=== PATIENT | female | born 1995 | race Caucasian/White ===

== ENCOUNTER → 2017-09-18 10:35 | Outpatient (CLI) | payer MEDICAID, SELFPAY ==
[2017-09-18 12:34] LABS: Absolute Lymphocyte Count 1.45 X10^3/ul (0.83-4.51); Absolute Neutrophil Count 7.2 X10^3/uL (2.0-7.7); Basophil# 0.04 X10^3/uL; Basophil% 0.4 % (0-1); Eosinophil# 0.28 X10^3/uL; Eosinophils% 2.8 % (0-5); Hematocrit 34.3 % (37-47); Hemoglobin 11.3 g/dl (12.0-15.0); Lymphocyte # 1.45 X10^3/ul (4.0); Lymphocyte % 14.6 % (19-41); Mean Corp Hgb Conc 32.9 g/gl (32-36); Mean Corpuscular Volume 87.9 fL (81-99); Mean Platelet Vol. 12.2 fl (6.2-12.0); Monocyte# 0.93 X10^3/uL; Monocyte% 9.4 % (0-10); Neutrophil # 7.18 X10^3/uL (2.7-7.7); Neutrophil % 72.3 % (47-70); Platelet Count 196 K/mm3 (150-450); RBC Distribution Width CV 13.2 % (11.6-14.6); RBC Distribution Width SD 40.6 fl (35.1-43.9); White Blood Count 9.9 K/mm3 (4.4-11.0)
[2017-09-18 12:38] LABS: Glucose Challenge Gest 1H 50g 85 mg/dL (70-140)
[2017-09-18 12:40] LABS: POSITIVE COUNT NO; POSITIVE DIFFERENTIAL NO; POSITIVE MORPHOLOGY NO
== END ==
PROVIDERS: Visit Provider Obstetrics & Gynecology
DX: Z34.83 Encounter for supervision of other normal pregnancy, third trimester (principal)
CPT/HCPCS: 36415; 82950; 85025; 86850; 86900

== ENCOUNTER 2017-10-11 21:00 | Outpatient (CLI) | payer MEDICAID, SELFPAY ==
[2017-10-11 21:37] VITALS: BMI 29.8
[2017-10-11 21:53] LABS: Mucous, Urine 0 SEEN /hpf (<or=2+); Red Blood Cells-Urine 0 SEEN /hpf (0-5)
[2017-10-11 22:00] LABS: Color, Urine Yellow (Yellow); Glucose, Dipstick Normal (Normal); Ketone-Dipstick Negative (Negative); Leukocyte Esterase-Dipstick 500 /ul (Negative); Nitrite-Dipstick Negative (Negative); Occult Blood-Urine Negative /ul (Negative); Protein-Dipstick Negative (Negative); Specific Gravity, Urine 1.015 (1.002-1.030); Urine Bilirubin Dipstick Negative (Negative); Urine Clarity Clear (Clear); Urine Urobilinogen 1 mg/dl (Normal)
[2017-10-11 22:08] LABS: Bacteria RARE /hpf (None Seen); Squamous Epithelial Cells - UA 0-5 SEEN /hpf (5-10); White Blood Cells 5-10 SEEN /hpf (0-5)
[2017-10-11 22:34] VITALS: RESP 18
--- NOTE | 2017-10-13 06:34 | OB.TRI.NOTE ---
- Problem List (1) Threatened labor Status: Acute History of Present Illness Date of Service: 10/11/17 Reason For Visit: PELVIC PRESSURE Date of Service: 10/11/17 History of Present Illness: co pelvic pressure and ctx Allergies oxycodone Allergy (Verified 10/11/17 21:36) Swelling Penicillins Allergy (Verified 10/11/17 21:36) Swelling - Pertinent Past Medical History Surgical History: Past Surgical History (Last Reviewed 10/05/17 @ 10:49 by Otilia Schreiber) delivery delivered History of ankle surgery Physical Exam Vitals: Vital Signs Resp 18 10/11/17 22:34 NST - FHR Rate Baby A Baseline: 140 Variability:: Moderate Accelerations:: 15 x 15 Decelerations:: None NST Reactive:: Yes FHR Category:: Category I Uterine Activity:: irregular Impression/Plan threatened labor reactive NST category I tracing. no cervical change dc home labor precautions
== END 2017-10-11 22:34 | disposition home or self-care (01) ==
LOC: WPOUT 21:14 → WP 21:14
PROVIDERS: Visit Provider Obstetrics & Gynecology
DX: O60.00 Preterm labor without delivery, unspecified trimester (principal); Z3A.00 Weeks of gestation of pregnancy not specified
CPT/HCPCS: 59025; 59050; 81001; 87086; 99218; G0378

== ENCOUNTER → 2017-10-15 19:22 | Outpatient (CLI) | payer MEDICAID, SELFPAY | PROVIDERS: Visit Provider Obstetrics & Gynecology | DX: R30.0 Dysuria (principal) | CPT/HCPCS: 87086 ==

== ENCOUNTER → 2017-11-05 15:49 | Outpatient (CLI) | payer MEDICAID, SELFPAY ==
--- NOTE | 2017-11-05 15:53 | US_ITS ---
STUDY: SECOND AND THIRD TRIMESTER OBSTETRICAL ULTRASOUND - LIMITED REASON FOR EXAM: Female, 22 years old. Bleeding. LMP: March 13, 2017 PRIOR ULTRASOUND: None. TECHNIQUE: Transabdominal ultrasound evaluation was performed. FINDINGS: There is a single intrauterine fetus. The fetus is in a cephalic presentation. There is demonstrated cardiac activity with a heart rate of 158 bpm. There is a normal amniotic fluid volume. The largest amniotic fluid pocket measures 3.76 cm. The amniotic fluid index (BRITTON) is 13.3 cm. The placenta is fundal There are Grade 1 placental changes. The cervix measures 13.56 cm in length. BIOMETRY: BPD: 9.12 cm: 37 weeks, 0 days HC: 32.71 cm: 37 weeks, 1 days AC: 30.68 cm: 34 weeks, 5 days FL: 11.17 cm: 36 weeks, 5 days Age by LMP: 33 weeks, 6 days. RAMÍREZ by LMP: 12/18/2017. age by current US: 35 weeks, 6 days. RAMÍREZ by current US: 12/04/2017. Estimated weight: 2584 grams, +/- 377 grams, 79 percentile. US/OB Limited With Biometrics IMPRESSION: Single intrauterine with an estimated gestational age by ultrasound of 35 weeks and 6 days with an RAMÍREZ of December 04, 2017. Electronically Signed: Maxine Garcia MD at 19:28 EDT Tel , Service support ,
== END ==
PROVIDERS: Referring Provider Obstetrics & Gynecology; Visit Provider Obstetrics & Gynecology
DX: O34.219 Maternal care for unspecified type scar from previous cesarean delivery (principal); O47.00 False labor before 37 completed weeks of gestation, unspecified trimester; Z3A.00 Weeks of gestation of pregnancy not specified
CPT/HCPCS: 76816

== ENCOUNTER → 2017-11-21 13:43 | Outpatient (CLI) | payer MEDICAID, SELFPAY ==
[2017-11-21 16:19] LABS: Group B Strep DNA By PCR Negative (Negative); Internal Control PASS; Probe Check PASS; Specimen Processing Control PASS
[2017-11-21 16:45] LABS: Chlamydia Trachomatis by PCR Negative (Negative); Neisserai gonorrhoeae by PCR Negative (Negative); Probe Check PASS; Sample Adequacy Control PASS; Specimen Processing Control PASS
== END ==
PROVIDERS: Referring Provider Nurse Practitioner Women's Health; Visit Provider Nurse Practitioner Women's Health
DX: Z34.90 Encounter for supervision of normal pregnancy, unspecified, unspecified trimester (principal)
CPT/HCPCS: 87081; 87491; 87591; 87653

== ENCOUNTER 2017-12-05 09:55 | Outpatient (CLI) | payer MEDICAID, SELFPAY ==
[2017-12-05 10:44] LABS: ROM Internal Control Test YES-OK TO RESULT pt. (Internal QC); ROM Patient Test Negative (Negative)
--- NOTE | 2017-12-17 21:10 | OB.TRI.NOTE ---
- Problem List (1) False labor Status: Acute History of Present Illness Date of Service: 12/05/17 Was patient seen by the physician?: No Reason For Visit: R/O SROM History of Present Illness: co questionable lof and irregular ctx Allergies oxycodone Allergy (Verified 12/11/17 14:49) Swelling Penicillins Allergy (Verified 12/11/17 14:49) Swelling - Pertinent Past Medical History Surgical History: Past Surgical History (Last Reviewed 12/11/17 @ 14:49 by Otilia Schreiber) delivery delivered History of ankle surgery Laboratory Studies: Laboratory Tests 12/05/17 Range/Units 10:18 Vag Amniotic Fld Detect Negative (Negative) NST - FHR Rate Baby A Baseline: 130 Variability:: Moderate Accelerations:: 15 x 15 Decelerations:: None NST Reactive:: Yes FHR Category:: Category I Uterine Activity:: no regular Impression/Plan false labor no ROM, reactive nst reassuring FHTs dc home labor precautions
== END 2017-12-05 11:00 | disposition home or self-care (01) ==
LOC: WPOUT 09:59 → WP 10:00
PROVIDERS: Referring Provider Obstetrics & Gynecology; Visit Provider Obstetrics & Gynecology
DX: O47.9 False labor, unspecified (principal); Z3A.00 Weeks of gestation of pregnancy not specified
CPT/HCPCS: 59025; 59050; 84112; 99218; G0378

== ENCOUNTER 2017-12-18 05:07 | Inpatient (IN) | payer MEDICAID, SELFPAY ==
[2017-12-18] MEDS: Lactated Ringers 1,000 ML 50 ML IV ×2 (05:45→06:45)
--- NOTE | 2017-12-18 05:45 | HP.PCM_ITS ---
- Problem List (1) IUD contraception Status: Acute Comment: plan 6 week pp (2) Status: Acute Qualifiers: Comment: Seq screen negative (3) Family history of congenital anomaly of cardiovascular system Status: Acute Comment: FOB and FOB's mother had surgical correction of a hole in their hearts. (4) Rh negative status during Status: Acute Qualifiers: Comment: rhogam 28 weeks and PRN (5) History of spina bifida Status: Acute Comment: patient born with spina bifida that was corrected. she has had an epidural with no issues. negative sequential screen (6) Normal in multigravida in third trimester Status: Acute Comment: PRR RAMÍREZ 12/18/17 girl PC Denny Jim boyfriend Chuck (7) Previous delivery affecting Status: Acute Comment: planning TOLAC, up to date information given. 90% chance of success. consent signed (8) Active labor at term Status: Acute History Date of Admission: 09/30/14 Final RAMÍREZ: 12/18/17 Gestational age: 40 Weeks and 0 Days History of this : This is a 22 year-old, at 40 weeks gestational age presents IAL 6 cm dilated. she desires a TOLAC. she has a history of being rh negative but otherwise has had an uncomplicated Surgical History: Surgical History (Last Reviewed 12/11/17 @ 14:49 by Otilia Schreiber) delivery delivered O82 History of ankle surgery Z98.890 Allergies oxycodone Allergy (Verified 12/11/17 14:49) Swelling Penicillins Allergy (Verified 12/11/17 14:49) Swelling Home Medications: Home Medications vitamin,calcium,oaetebkx-yggd-wfbym acid tablet 1 tab PO QDAY 09/18/17 Smoking Status: Never smoker Alcohol: None Number of Fetus(es): 1 Heart Tracin moderate variability reactive no decels. cat I tracing TOCO Analysis: q2-3 History Past Pregnancies: Past Pregnanciesgancy History 3 Elective abortions Hx Para 2 Spontaneous abortions Hx # Term Pregnancies Ectopic pregnancies Hx # Pregnancies Multiple births # of living children Past Pregnancies Del. Date Name GA/Weeks Outcome Route Bth Weight Infant Gen Labor Lgth Anesthesia Del Locatn Provider FOB Unknown 2014 Diandra 40 live - full term 8lbs 7oz Female SM Unknown 2016 Denny 39 live - full term 8lbs 12oz Male SM Delivery Date: On 09/18/17 @ 09:18 Emily Boothe breech Labs: Mom's Problem List Problem Status Onset Code Active labor at term Acute Social History Alleged father chuck Vazquez Smoking No Smoking Status Never smoker Expected Infant Delivery Method: Describe any other labor & delivery plans:: OB Visit. RAMRÍEZ Calculator. Estimated Delivery Date 12/18/17. Based on LMP (certain) 03/13/17. Current WG 39w 0d. Number 1. Expected Delivery Route/Plan. - planned and discussed, handout given. Specific Issue/Plans. flu vaccine: given. tdap vaccine: given. rhogam: given. LARC form signed: alfonso. labor support person: Chuck. pain management: epidural. cut cord/dad catch: yes. : yes. PP control planned: iud pp. discussed possible routes of delivery and associated risks: yes, plan TOLAC. consent signed. special requests: Review of Systems Constitutional: Denies: Fever, Malaise Eyes: Denies: Blurred vision, Vision Change HEENT: Denies: Head Aches, Visual Changes Cardiovascular: Denies: Chest Pain, Palpitations Respiratory: Denies: Cough, Shortness of Breath, Wheezing Gastrointestinal: Denies: Abdominal Pain, Diarrhea, Nausea, Vomiting Genitourinary: Denies: Dysuria, Hematuria Musculoskeletal: Denies: Joint Pain, Muscle pain Skin: Denies: Lesions, Rash Neurological: Denies: Blurred vision, Focal weakness, Headaches Psychiatric: Denies: Anxiety, Depression Endocrine: Denies: Heat/ Cold Intolerance Hematologic/ Lymphatic: Denies: Easy Bruising, Easy Bleeding Physical Exam General: Alert, Cooperative, No apparent distress HEENT: Atraumatic, Normocephalic. Negative for: Thyromegaly, Lymphadenopathy Cardiovascular: Regular rate Lungs: Normal air movement Abdomen: Soft, Non Tender, Gravid Neurological: Deep Tendon Reflexes 2+/4 and Symmetrical, Neuro grossly intact. Negative for: Clonus PRESCHOOL ASSISTANT DIRECTOR: Normal external genitalia. Negative for: Vulvar lesions Estimated gestational size: Appropriate for gestational size Presentation: Cephalic Cervix Dilation (cm): 6 Assessment/Plan All Active Problems (Last Reviewed 12/11/17 @ 14:49 by Otilia Schreiber) False labor (Acute) Active labor at term (Acute) IUD contraception (Acute) (Acute) Family history of congenital anomaly of cardiovascular system (Acute) Rh negative status during (Acute) History of spina bifida (Acute) Normal in multigravida in third trimester (Acute) Previous delivery affecting (Acute) Threatened labor (Resolved) This is a 22 year-old, at 40 weeks gestational age presents IAL desires TOLAC Patient presents IAL, plan expectant management for , pitocin/AROM PRN if needed. Pain management: plans epidural. GBS negative Management of any complications: TOLAC I have reviewed the [facility] and made any clinically relevant updates.
[2017-12-18] MEDS: Ondansetron 4 MG/2 ML Vial IV (05:56)
[2017-12-18 06:03] LABS: Hematocrit 33.5 % (37-47); Hemoglobin 10.9 g/dl (12.0-15.0); Mean Corp Hgb Conc 32.5 g/gl (32-36); Mean Corpuscular Volume 79.8 fL (81-99); Mean Platelet Vol. 13.1 fl (6.2-12.0); Platelet Count 216 K/mm3 (150-450); RBC Distribution Width CV 14.5 % (11.6-14.6); RBC Distribution Width SD 40.5 fl (35.1-43.9); White Blood Count 13.6 K/mm3 (4.4-11.0)
[2017-12-18 06:05] VITALS: BMI 30.2
[2017-12-18 06:21] LABS: Scan Indicated on CBC? Y/N NO
[2017-12-18] MEDS: fentaNYL-bupivacaine (epidural) 100 ML BAG EPIDURAL (06:45)
[2017-12-18] MEDS: Oxytocin 30 units/NS 500 ml 30 UNITS/500 ML IV.SOLN 334 UNITS IV (09:20)
--- NOTE | 2017-12-18 09:43 | PCM.OB.VAG ---
- Problem List (1) IUD contraception Status: Acute Comment: plan 6 week pp (2) Status: Acute Qualifiers: Comment: Seq screen negative (3) Family history of congenital anomaly of cardiovascular system Status: Acute Comment: FOB and FOB's mother had surgical correction of a hole in their hearts. (4) Rh negative status during Status: Acute Qualifiers: Comment: rhogam 28 weeks and PRN (5) History of spina bifida Status: Acute Comment: patient born with spina bifida that was corrected. she has had an epidural with no issues. negative sequential screen (6) Normal in multigravida in third trimester Status: Acute Comment: PRR RAMÍREZ 12/18/17 girl PC Diandra Denny boyfriend Joe (7) Previous delivery affecting Status: Acute Comment: planning TOLAC, up to date information given. 90% chance of success. consent signed (8) Active labor at term Status: Acute Vaginal Delivery Maternal Presentation: Active Labor ial 6 cm Amniotic Membrane Rupture Type: Artificial Amniotic Fluid Description: Bloody Final RAMÍREZ: 12/18/17 Gestational age: 40 Weeks and 0 Days Date of Procedure: 12/18/17 Pre-Operative Diagnosis: ial tolac Post-Operative Diagnosis: same Surgery/ Procedure Performed: Spontaneous Vaginal Delivery, - - Type of Anesthesia: Epidural Description of Procedure: Patient began pushing and delivered the head in the LYNNETTE presentation. The head was delivered atraumatically. The anterior and posterior shoulders delivered without complication followed by the rest of the and the was placed on the maternal abdomen. Delayed cord clamping was employed for approximately 60 seconds. Cord was clamped and cut and gentle traction was applied to the cord and the placenta delivered spontaneously immediately following it was noted to be intact with three-vessel cord. The perineum and vagina were inspected and noted to have a small first-degree perineal laceration that was repaired in the usual fashion with 3-0 Vicryl repeat. EBL was 100 cc. Patient and tolerated delivery well. Presentation: LYNNETTE Placental Delivery Description: Spontaneous Placenta Disposition: [facility] Cord Vessel Description: 3 Vessels Cord Entanglement: None Estimated Blood Loss: 100 A gender: Female Episiotomy Description: None Laceration: Perineal Extension/lac, 1st degree Medications given after delivery: IV Pitocin Complications: None
[2017-12-18] MEDS: Oxytocin 30 units/NS 500 ml 30 UNITS/500 ML IV.SOLN 167 UNITS IV (09:50)
[2017-12-18 12:04] VITALS: BP 113/74; PULSE 80; RESP 16; TEMP 36.7; O2SAT 98
[2017-12-18 16:21] VITALS: BP 127/78; PULSE 100; RESP 16; TEMP 36.8; O2SAT 98
[2017-12-18 20:10] VITALS: BP 126/66; PULSE 82; RESP 16; TEMP 36.9; O2SAT 100
[2017-12-18] MEDS: Acetaminophen 500 MG Tablet 1000 MG PO (20:15)
[2017-12-18 23:51] VITALS: BP 127/82; PULSE 77; RESP 14; TEMP 36.6; O2SAT 98
[2017-12-19 05:10] VITALS: BP 100/60; PULSE 74; RESP 16; TEMP 36.5; O2SAT 98
--- NOTE | 2017-12-19 07:51 | PCM.PN.OB ---
Patient Problems: Active and Suspected Problems (Last Reviewed 12/11/17 @ 14:49 by Otilia Schreiber) Active labor at term (Acute) Subjective: No SOB, CP. doing well - Physical Exam General: Alert, Oriented x3 Abdomen: Soft, Non Tender, - - FF below U Vital Signs Temp Pulse Resp BP Pulse Ox 97.7 F L 74 16 100/60 98 12/19/17 05:10 12/19/17 05:10 12/19/17 05:10 12/19/17 05:10 12/19/17 05:10 Oxygen Delivery Method Room Air Weight: 182 lb Body Mass Index (BMI) 30.2 Intake and Output for Last 24 Hours 12/17/17 12/18/17 12/19/17 23:59 23:59 23:59 Intake Total 2665 / 2665 Output Total 700 / 700 Balance 1964 / 1964 Laboratory Tests Past 24 Hrs 12/18/17 12:15 Screen NEGATIVE Baby's Blood Type A POSITIVE Baby's PRETTY NEGATIVE Medical Necessity - Tobacco Use Smoking Status: Never smoker Assessment/Plan All Active Problems (Last Reviewed 12/11/17 @ 14:49 by Otilia Schreiber) False labor (Acute) Active labor at term (Acute) IUD contraception (Acute) (Acute) Family history of congenital anomaly of cardiovascular system (Acute) Rh negative status during (Acute) History of spina bifida (Acute) Normal in multigravida in third trimester (Acute) Previous delivery affecting (Acute) Threatened labor (Resolved) , PPD#1: routine care. . Need rhogam
[2017-12-19 09:19] VITALS: BP 124/80; PULSE 98; RESP 16; TEMP 36.3
[2017-12-19] MEDS: Prenatal Vits Tablet 1 TABLET PO (11:33)
[2017-12-19 14:28] VITALS: BP 121/71; PULSE 90; RESP 16; TEMP 36.6
[2017-12-19 20:50] VITALS: BP 116/73; PULSE 73; RESP 14; TEMP 36.9; O2SAT 98
[2017-12-20 03:12] VITALS: BP 118/84; PULSE 82; RESP 16; TEMP 36.6; O2SAT 97
--- NOTE | 2017-12-20 08:06 | PCM.PN.OB ---
Patient Problems: Active and Suspected Problems (Last Reviewed 12/11/17 @ 14:49 by Otilia Schreiber) Active labor at term (Acute) Subjective: Doing well. No CP, SOB. Plans home today. - Physical Exam General: Alert, Oriented x3 Abdomen: Soft, Non Tender, - - FF below U Vital Signs Temp Pulse Resp BP Pulse Ox 97.8 F 82 16 118/84 H 97 12/20/17 03:12 12/20/17 03:12 12/20/17 03:12 12/20/17 03:12 12/20/17 03:12 Oxygen Delivery Method Room Air Weight: 182 lb Body Mass Index (BMI) 30.2 Intake and Output for Last 24 Hours 12/18/17 12/19/17 12/20/17 23:59 23:59 23:59 Intake Total 2665 / 2665 Output Total 700 / 700 Balance 1964 / 1964 Medical Necessity - Tobacco Use Smoking Status: Never smoker Assessment/Plan All Active Problems (Last Reviewed 12/11/17 @ 14:49 by Otilia Schreiber) False labor (Acute) Active labor at term (Acute) IUD contraception (Acute) (Acute) Family history of congenital anomaly of cardiovascular system (Acute) Rh negative status during (Acute) History of spina bifida (Acute) Normal in multigravida in third trimester (Acute) Previous delivery affecting (Acute) Threatened labor (Resolved) , PPD #2: Routine care. Needs rhogam. Plans home today.
--- NOTE | 2017-12-20 08:08 | DCINST_ITS ---
Additional Instructions: If you experience any of the following, contact your healthcare provider. * Bleeding that soaks a pad every hour for 2 hours * Fever 100.4 or higher * Unrelieved incision or abdominal pain * Swelling, redness, discharge or bleeding from your incision or episiotomy site * Your incision begins to separate * Problems urinating (including inability to urinate or burning while urinating). * Visual changes * Severe headache * Flu-like symptoms * Pain or redness in one of both of your breasts * Pain, warmth, tenderness or swelling in your legs, especially the calf area * Frequent nausea and vomiting * Symptoms of depression or anxiety If you experience any of the following, call 911 or go to the nearest Emergency Room. * Chest pain * Problems breathing * Seizure activity * Partial or complete paralysis of a body part, slurred speech, weakness or drooping of the face, or a sudden inability to walk or hold your balance Allergies/Adverse Reactions: Allergies oxycodone Allergy (Verified 12/18/17 06:06) Swelling Penicillins Allergy (Verified 12/18/17 06:06) Swelling Medications to take at Discharge vitamin,calcium,ibapmgha-lzrh-ntyeo acid tablet 1 tab PO QDAY 09/18/17 Primary Care Physician: Care Physician,No Primary [Primary Care Provider] - Test Results: Test results from this visit will be discussed in further detail at your follow- up appointment, if applicable.
--- NOTE | 2017-12-20 08:08 | PCM.DCVAG ---
Additional Instructions: If you experience any of the following, contact your healthcare provider. Bleeding that soaks a pad every hour for 2 hours Fever 100.4 or higher Unrelieved incision or abdominal pain Swelling, redness, discharge or bleeding from your incision or episiotomy site Your incision begins to separate Problems urinating (including inability to urinate or burning while urinating). Visual changes Severe headache Flu-like symptoms Pain or redness in one of both of your breasts Pain, warmth, tenderness or swelling in your legs, especially the calf area Frequent nausea and vomiting Symptoms of depression or anxiety If you experience any of the following, call 911 or go to the nearest Emergency Room. Chest pain Problems breathing Seizure activity Partial or complete paralysis of a body part, slurred speech, weakness or drooping of the face, or a sudden inability to walk or hold your balance Allergies/Adverse Reactions: Allergies oxycodone Allergy (Verified 12/18/17 06:06) Swelling Penicillins Allergy (Verified 12/18/17 06:06) Swelling Medications to take at Discharge vitamin,calcium,zzkdhyna-hxzn-srlat acid tablet 1 tab PO QDAY 09/18/17 Primary Care Physician: Care Physician,No Primary [Primary Care Provider] - Test Results: Test results from this visit will be discussed in further detail at your follow-up appointment, if applicable.
[2017-12-20 08:15] VITALS: BP 113/78; PULSE 82; RESP 18; TEMP 36.8
[2017-12-20] MEDS: Prenatal Vits Tablet 1 TABLET PO (11:09)
== END 2017-12-20 12:00 | disposition home or self-care (01) | DRG 560 ==
PROVIDERS: Admitting Provider Obstetrics & Gynecology; Visit Provider Obstetrics & Gynecology
DX: O48.0 Post-term pregnancy (principal); Z3A.40 40 weeks gestation of pregnancy; O70.0 First degree perineal laceration during delivery; Z37.0 Single live birth; Q05.9 Spina bifida, unspecified
CPT/HCPCS: 59025; 59050; 85027; 85461; 86850; 86900; 90384; J7120; J2405; J2790

== ENCOUNTER → 2018-02-01 18:16 | Outpatient (CLI) | payer MEDICAID, SELFPAY ==
[2018-02-01 11:43] VITALS: BMI 28.3
== END ==
PROVIDERS: Referring Provider Obstetrics & Gynecology; Visit Provider Obstetrics & Gynecology
DX: Z12.4 Encounter for screening for malignant neoplasm of cervix (principal)

== ENCOUNTER → 2018-02-01 18:27 | Outpatient (CLI) | payer MEDICAID, SELFPAY ==
[2018-02-01 11:43] VITALS: BMI 28.3
[2018-02-07 08:49] LABS: HPV Reflexed? NOT INDICATED
== END ==
PROVIDERS: Visit Provider Obstetrics & Gynecology
DX: Z12.4 Encounter for screening for malignant neoplasm of cervix (principal)
CPT/HCPCS: 87624; 88175; G0145

== ENCOUNTER → 2019-10-30 | Outpatient (CLI) | payer MEDICAID, SELFPAY ==
[2019-10-30 13:47] VITALS: BMI 27.8
[2019-10-30 15:26] LABS: Absolute Lymphocyte Count 1.94 X10^3/uL (0.83-4.51); Absolute Neutrophil Count 4.7 X10^3/uL (2.0-7.7); Basophil# 0.01 X10^3/uL; Basophil% 0.1 % (0-1); Eosinophil# 0.25 X10^3/uL; Eosinophils% 3.3 % (0-5); Lymphocyte # 1.94 X10^3/ul (4.0); Lymphocyte % 25.7 % (19-41); Mean Corp Hgb Conc 32.6 g/dL (32-36); Mean Corpuscular Hgb 30.3 pg (27.0-32.0); Mean Corpuscular Volume 93.1 fL (81-99); Mean Platelet Vol. 12.5 fl (6.2-12.0); Monocyte# 0.65 X10^3/uL; Monocyte% 8.6 % (0-10); NRBC Flagged by Analyzer 0 % (0-5); Neutrophil # 4.67 X10^3/uL (2.7-7.7); Platelet Count 210 K/mm3 (150-450); RBC Distribution Width CV 12.5 % (11.6-14.6); RBC Distribution Width SD 42.7 fl (35.1-43.9); Red Blood Count 4.62 M/mm3 (4.2-5.4); White Blood Count 7.5 K/mm3 (4.4-11.0)
[2019-10-30 15:52] LABS: ALB/GLOB Ratio 1.3 RATIO (0.9-2.4); AST(SGOT) 12 U/L (15-37); Alanine Aminotransfer ALT/SGPT 17 U/L (13-56); Alkaline Phosphatase 73 U/L (45-117); Anion Gap 5 (5-15); BUN 11 mg/dL (7-18); BUN/Creat Ratio 14.4 RATIO (10-20); Calcium,Total 8.8 mg/dL (8.5-10.1); Chloride 108 mmol/L (98-107); Creatinine, Serum 0.76 mg/dL (0.55-1.02); EST Glomerular Filtration Rate 100 mL/min (>60); Est Glom Filt Rate - Afr Amer 121 mL/min (>60); Globulin 3.1 g/dL (2.2-4.2); Glucose 90 mg/dL (74-106); Potassium 4.1 mmol/L (3.5-5.1); Protein, Total 7.1 g/dL (6.4-8.2); Sodium Level 139 mmol/L (136-145); Thyroid Stim Hormone (TSH) 1.13 uIU/mL (0.358-3.74)
== END | disposition home or self-care (01) ==
LOC: BIMLAB 14:11
PROVIDERS: PCP Internal Medicine; Referring Provider Internal Medicine; Visit Provider Internal Medicine
DX: L30.9 Dermatitis, unspecified (principal); L50.9 Urticaria, unspecified; L50.8 Other urticaria; Z13.29 Encounter for screening for other suspected endocrine disorder
CPT/HCPCS: 36415; 80053; 84443; 85025

== ENCOUNTER → 2020-02-17 | Outpatient (CLI) | payer MEDICAID, SELFPAY ==
[2020-02-17 15:44] VITALS: BMI 26.6
[2020-02-20 14:37] LABS: HPV Reflexed? NOT INDICATED
== END | disposition home or self-care (01) ==
LOC: LABSPEC 17:04
PROVIDERS: PCP Internal Medicine; Visit Provider Obstetrics & Gynecology
DX: Z12.4 Encounter for screening for malignant neoplasm of cervix (principal)
CPT/HCPCS: 88175; G0145

== ENCOUNTER → 2020-12-01 09:15 | Outpatient (CLI) | payer MEDICAID, SELFPAY ==
[2020-12-01 13:00] LABS: HIV - WCH Non-Reactive (Nonreactive); Hepatitis C Antibody Non-Reactive (Nonreactive); Syphilis Antibodies Non-reactive
[2020-12-02 08:58] LABS: HSV 1 IgG < 0.91 index (0.00-0.90); HSV 2 IgG < 0.91 index (0.00-0.90)
[2020-12-03 22:06] LABS: Chlamydia By Nucleic Acid AMP Negative (Negative)
[2020-12-04 07:40] LABS: Gonococcus By Nucleic Acid AMP Negative (Negative)
== END ==
PROVIDERS: PCP Internal Medicine; Referring Provider Nurse Practitioner Women's Health; Visit Provider Nurse Practitioner Women's Health
DX: N76.0 Acute vaginitis (principal); Z20.2 Contact with and (suspected) exposure to infections with a predominantly sexual mode of transmission; Z11.3 Encounter for screening for infections with a predominantly sexual mode of transmission
CPT/HCPCS: 36415; 86695; 86696; 86703; 86780; 86803; 87070; 87205; 87491; 87591

== ENCOUNTER 2021-01-10 18:24 | Emergency (ER) | payer MEDICAID, SELFPAY ==
[2021-01-10 18:44] VITALS: BP 116/83; PULSE 86; RESP 18; TEMP 36.1; O2SAT 100; BMI 27.4
--- NOTE | 2021-01-10 19:09 | ED.RN ---
PER PT, SHE DOES NOT WANT TO FILE THIS VISIT UNDER WORKERS COMP
--- NOTE | 2021-01-10 19:45 | EKG12_ITS ---
Test Reason : DIZZY Blood Pressure : / mmHG Vent. Rate : 067 BPM Atrial Rate : 067 BPM P-R Int : 162 ms QRS Dur : 090 ms QT Int : 420 ms P-R-T Axes : 028 070 063 degrees QTc Int : 443 ms Sinus rhythm with marked sinus arrhythmia Otherwise normal ECG Confirmed by JEFFREY ALAN, LISANDRA ([id number]), content editor HERRERA FLORES ([id number]) on 01/12/2021 10:50:12 AM Referred By: PL Confirmed By:LISANDRA MURPHY MD
--- NOTE | 2021-01-10 19:46 | EX.ED.DYSGE1 ---
HPI History of Present Illness Chief Complaint: Syncope Informant: patient Narrative Narrative: Patient had a syncopal event at work. She was talking to her boss when she started to feel lightheaded and see spots in her vision. She then woke up on the ground. She has a slight headache where she hit her head on the left side. She states nothing else hurts. She did not have palpitations chest pain or shortness of breath and she does not have that now. No recent travel surgery immobilization personal or family history of DVT or PE. She has no cardiac history. She has not been ill recently. She has not had this happen before. No chronic medical conditions Denies medications Allergy to oxycodone penicillin Surgery: Non-smoker lives with significant other [facility] Medical History History of spina bifida Home Medications levonorgestrel 20.1 mcg/24 hrs (6 yrs) 52 mg intrauterine device 1 device INTRA-UTER ONCE 02/17/20 [History Last Taken Unknown] Allergy/AdvReac Type Severity Reaction Status Date / Time oxycodone Allergy Swelling Verified 12/01/20 08:57 Penicillins Allergy Swelling Verified 12/01/20 08:57 Family History Mother Heart disease Surgical History delivery delivered History of ankle surgery Social History Smoking Status: Never smoker alcohol intake: never substance use type: does not use caffeine: Yes what type of physical activity do you participate in: walking seatbelt use: always do you feel safe at home: Yes additional social history: single-works at [employer] in [facility] ED Constitutional Constitutional ED: Denies chills or fever(s) Eyes Eyes: Reports other Details: Transient spots in vision as in history of present illness. ENT ENT ED: Denies rhinorrhea Cardiovascular Cardiovascular: Denies chest pain or palpitations Respiratory/Chest Respiratory/Chest: Denies cough or dyspnea Gastrointestinal Gastrointestinal: Denies diarrhea, nausea or vomiting Genitourinary Genitourinary ED: Denies dysuria or hematuria Musculoskeletal Musculoskeletal: Denies myalgias Integumentary Denies rash Neurologic Neurologic: Reports headache(s); Denies paresthesias or weakness Psychiatric Psychiatric: Denies anxiety or depression Endocrine Endocrinology: Denies polydipsia or polyuria Allergic/Immunologic Allergic/Immunologic ED: Denies mouth swelling or urticaria EXAM Physical Exam Const Vital Signs: 01/10/21 18:44 01/10/21 18:59 01/10/21 20:47 Temperature 97 F L Temperature Source Temporal Pulse Rate 86 83 Respiratory Rate 18 16 Respiratory Effort Normal Non-Labored Blood Pressure 116/83 H 95/71 Blood Pressure Mean 94 79 Pulse Ox 100 100 Oxygen Delivery Method Room Air Room Air Positive well nourished and well developed General Appearance ED: well developed and NAD HEENT HEENT Narrative: Patient does have a contusion on the left frontal area. No step-off. No laceration. Eyes PERRL and EOMs intact bilaterally General Eye ED: Negative for pale conjunctiva or scleral icterus Neck no JVD Neck Narrative: No cervical spine tenderness at all. She did come in with a collar but she is having no neurologic symptoms or tenderness. She is awake and alert. This was removed and her C-spine was clinically cleared. Chest Wall inspection of chest normal Resp normal respiratory effort and clear to auscultation bilaterally Effort and Inspection: Negative for pain with movement Auscultation: Negative for rales, rhonchi or wheezes Cardio regular rate, regular rhythm and no murmurs GI normal to inspection, nondistended, normoactive bowel sounds and non-tender Palpation: soft Back/Spine no CVA tenderness Cervical Spine: Negative for cervical spine tenderness Thoracic Spine / Upper Back: Negative for thoracic spinal tenderness or paraspinal muscle tenderness Lumbar Spine / Lower Back: Negative for lumbar spinal tenderness Extremity normal to inspection General Extremety ED: Negative for edema or tenderness General Extremity: Negative for edema Neuro oriented x3 Sensorium / Orientation: alert Psych mental status grossly normal Skin no rashes or lesions noted Skin Narrative: Contusion to left forehead as above. No laceration. No pallor or jaundice. MDM MDM MDM Narrative Medical decision making narrative: CT scan shows no acute process. CBC is normal. Electrolytes showed just minimal decrease potassium which should self correct. is negative. Patient's recheck. She is feeling better. She is comfortable. I find out now that she just still wished her hours completely. Her sleep has been bad. I think this is a contributing factor. She also may not have been eating as well. We discussed regular diet sleep and fluids. Lab Data Attestation: I reviewed the patient's lab results. Labs: Laboratory Results - last 24 hr 01/10/21 01/10/21 01/10/21 19:02 19:02 19:02 WBC 8.0 RBC 4.53 Hgb 13.7 Hct 40.9 MCV 90.3 MCH 30.2 MCHC 33.5 RDW Std Deviation 41.0 RDW Coeff of Paramjit 12.5 Plt Count 226 MPV 12.6 H Immature Gran % (Auto) 0.400 Neut % (Auto) 64.1 Lymph % (Auto) 24.0 Irion % (Auto) 7.2 Eos % (Auto) 4.3 Baso % (Auto) 0.0 Absolute Neuts (auto) 5.1 Absolute Lymphs (auto) 1.91 Nucleated RBC % 0 Sodium 140 Potassium 3.4 L Chloride 109 H Carbon Dioxide 25.0 Anion Gap 6 BUN 9 Creatinine 0.85 Estim Creat Clear Calc 91.83 Est GFR (MDRD) Af Amer 106 Est GFR (MDRD) Non-Af 87 BUN/Creatinine Ratio 10.6 Glucose 98 Calcium 8.8 Serum , Qual NEGATIVE Radiography Diagnostic Testing: Clinical Impression(s) from Imaging Studies Brain CT 01/10/21 20:02 IMPRESSION: There are no acute intracranial findings. Electronically Signed: Noah Archer MD at 20:19 EST , Service support , EKG Initial EKG: Comments: EKG done for syncope read by me shows a normal sinus rhythm with sinus arrhythmia. No ventricular ectopy. No acute ST elevation or depression. RI interval, QRS duration and QTc normal. Discharge Plan Triage Chief Complaint: Syncope ED Provider: Jose Saab Dx/Rx/DC Orders Clinical Impression: Syncope, Closed head injury Instructions: ED Head Injury (Adult), ED Fainting, Uncertain Cause Prescriptions: No Action Liletta 20.1 mcg/24 hrs (6 yrs) 52 mg intrauterine device 1 device INTRA-UTER ONCE RF: 0 Primary Care Provider: Ac Ma Referrals: Ac Ma MD [Primary Care Provider] - 3-5 Days if not improving Disposition Disposition: Home, Self Care
--- NOTE | 2021-01-10 20:02 | CT_ITS ---
STUDY: CT BRAIN WITHOUT CONTRAST REASON FOR EXAM: Female, 25 years old. HEADACHE trauma TECHNIQUE: Transaxial CT imaging of the brain was performed without administration of intravenous contrast material. Individualized dose optimization techniques were used for this CT. COMPARISON: None FINDINGS: Normal calvarium. Normal soft tissues. Normal size ventricles and extra-axial spaces for the patient''s age. Normal white matter tracts of the cerebral hemispheres. Normal basal ganglia and thalami. Normal brainstem. Normal cerebellum. There is no intracranial hemorrhage. There are no findings of an acute ischemic infarction. There is mucoperiosteal inflammatory disease of the paranasal sinuses consistent with mild chronic sinusitis. ASPECTS 10 CT/Brain/Head without Contrast IMPRESSION: There are no acute intracranial findings. Electronically Signed: Noah Archer MD at 20:19 EST , Service support ,
[2021-01-10 20:47] VITALS: BP 95/71; PULSE 83; RESP 16; O2SAT 100
[2021-01-10 20:49] LABS: Absolute Lymphocyte Count 1.91 X10^3/uL (0.83-4.51); Absolute Neutrophil Count 5.1 X10^3/uL (2.0-7.7); Eosinophil# 0.34 X10^3/uL; Eosinophils% 4.3 % (0-5); Hematocrit 40.9 % (37-47); Hemoglobin 13.7 g/dL (12.0-15.0); Lymphocyte # 1.91 X10^3/ul (0.83-4.51); Mean Corp Hgb Conc 33.5 g/dL (32-36); Mean Corpuscular Hgb 30.2 pg (27.0-32.0); Mean Corpuscular Volume 90.3 fL (81-99); Mean Platelet Vol. 12.6 fl (6.2-12.0); Monocyte# 0.57 X10^3/uL; Monocyte% 7.2 % (0-10); NRBC Flagged by Analyzer 0 % (0-5); Neutrophil # 5.12 X10^3/uL (2.7-7.7); Neutrophil % 64.1 % (47-70); Platelet Count 226 K/mm3 (150-450); RBC Distribution Width CV 12.5 % (11.6-14.6); Red Blood Count 4.53 M/mm3 (4.2-5.4)
[2021-01-10 20:59] LABS: Anion Gap 6 (5-15); BUN 9 mg/dL (7-18); BUN/Creat Ratio 10.6 RATIO (10-20); Calcium,Total 8.8 mg/dL (8.5-10.1); Chloride 109 mmol/L (98-107); Creatinine, Serum 0.85 mg/dL (0.55-1.02); EST Glomerular Filtration Rate 87 mL/min (>60); Est Glom Filt Rate - Afr Amer 106 mL/min (>60); Estimated Creatinine Clearance 91.83 ml/min; Glucose 98 mg/dL (74-106); Potassium 3.4 mmol/L (3.5-5.1); Sodium Level 140 mmol/L (136-145)
[2021-01-10 21:08] LABS: Internal QC Validated? YES +Cl - CLEAR BKGD; Pregnancy, Serum, hCG Quali. NEGATIVE Negative
[2021-01-10 22:22] VITALS: BP 123/67; PULSE 72; RESP 16; O2SAT 100
== END 2021-01-10 22:22 | disposition home or self-care (01) ==
PROVIDERS: Emergency Provider Emergency Medicine; PCP Internal Medicine
DX: S00.83XA Contusion of other part of head, initial encounter (principal); R55 Syncope and collapse; W18.30XA Fall on same level, unspecified, initial encounter; Y93.89 Activity, other specified; Y92.89 Other specified places as the place of occurrence of the external cause; Y99.8 Other external cause status
CPT/HCPCS: 70450; 80048; 84703; 85025; 93005; 96360; 99285; J7030; A4216

== ENCOUNTER → 2022-01-24 | Outpatient (CLI) | payer MEDICAID, SELFPAY ==
[2022-01-24 09:49] LABS: Hematocrit 43.8 % (37-47); Hemoglobin 14.6 g/dL (12.0-15.0); Mean Corp Hgb Conc 33.3 g/dL (32-36); Mean Corpuscular Hgb 30.2 pg (27.0-32.0); Mean Corpuscular Volume 90.5 fL (81-99); Mean Platelet Vol. 11.6 fl (6.2-12.0); Platelet Count 235 K/mm3 (150-450); RBC Distribution Width SD 39.5 fl (35.1-43.9); Red Blood Count 4.84 M/mm3 (4.2-5.4); White Blood Count 5.1 K/mm3 (4.4-11.0)
[2022-01-24 09:56] LABS: Internal QC Validated? YES +Cl - CLEAR BKGD; Pregnancy, Serum, hCG Quali. NEGATIVE Negative
[2022-01-24 10:02] LABS: Anion Gap 3 (5-15); BUN 8 mg/dL (7-18); BUN/Creat Ratio 10.9 RATIO (10-20); Calcium,Total 8.9 mg/dL (8.5-10.1); Chloride 109 mmol/L (98-107); Creatinine, Serum 0.74 mg/dL (0.55-1.02); EST Glomerular Filtration Rate 102 mL/min (>60); Est Glom Filt Rate - Afr Amer 123 mL/min (>60); Glucose 101 mg/dL (74-106); Potassium 3.5 mmol/L (3.5-5.1); Sodium Level 140 mmol/L (136-145)
--- NOTE | 2022-01-24 16:10 | PCM.TILTTABL ---
Staff Staff: Colleen Ferrera and America Fuller Summary Pre Test Resting HR: 71 Pre Test Resting BP: 114/68 Minimum Test HR: 88 Maximum Test HR: 113 Minimum Test BP: 104/66 Maximum Test BP: 114/74 Reason for Test Termination: Reached Maximum Test Time Physician Tilt Table Report Patient's Physicians Primary Care Physician: Ac Ma Practical Nursing Faculty: Yoan Chowdhury Indications/Diagnosis: Syncope Procedure Comments: The patient was brought to the tilt table laboratory. She was awake and alert and warm and dry. Her resting heart rate was 71 bpm with a resting blood pressure 114/68 mmHg. Her cardiac rhythm was normal sinus rhythm. The patient was placed in the 70 degree upright tilt table position for approximately 20 minutes. The patient remained alert and oriented and was reported as warm and dry. Her initial heart rate was 93 bpm with an initial blood pressure 116/74 mmHg. Her lowest heart rate was 80 bpm with a lowest blood pressure of 104/66 mmHg. Her concluding heart rate was 113 bpm with a concluding blood pressure 114/74 mmHg. She remained in sinus rhythm. She was noted to have cold hands . The patient did not lose consciousness. She returned to the supine position. The patient was subsequently administered nitroglycerin 0.4 mg sublingual x1. She was returned to the 70 degree upright tilt table position for approximately 10 minutes. Her initial heart rate was 111 bpm with an initial blood pressure 124/76 mmHg. Her maximal heart rate was 157 bpm with a maximal blood pressure 116/66 mmHg. Her concluding heart rate was 127 bpm with a concluding blood pressure 98/55 mmHg. She was reported as awake and alert. She was noted to at times appear pale and clammy. She noted she felt her heart racing . There were no notation of feeling warm . She did not lose consciousness. The patient was returned to the supine position. She remained alert and oriented and warm and dry. She had a concluding heart rate of 82 bpm and a concluding blood pressure of 104/64 mmHg. She was taking oral intake. She was subsequently released from the tilt table laboratory. Summary: 70 degree tilt table study pre and post nitroglycerin sublingual challenge demonstrated findings potentially compatible with vasovagal mediated type symptoms but was considered negative for reproducible vasovagal/neurocardiogenic mediated syncope. This note was generated using a voice recognition system and there may be incorrect words, spelling or punctuation that were not noted when reviewing the office note prior to saving.
[2022-01-24 16:14] VITALS: BP 104/66; BP 114/68; BP 114/74
== END | disposition home or self-care (01) ==
LOC: CVS 09:35
PROVIDERS: PCP Internal Medicine; Referring Provider Internal Medicine Cardiovascular Disease; Visit Provider Internal Medicine Cardiovascular Disease
DX: R55 Syncope and collapse (principal); R00.2 Palpitations
CPT/HCPCS: 36415; 80048; 84703; 85027; 93660; J7040; A4216

== ENCOUNTER → 2023-05-17 | Outpatient (CLI) | payer OTHER, SELFPAY ==
[2023-05-17 10:20] LABS: Absolute Lymphocyte Count 1.94 X10^3/uL (0.83-4.51); Absolute Neutrophil Count 3.9 X10^3/uL (2.0-7.7); Basophil# 0.04 X10^3/uL; Basophil% 0.6 % (0-1); Eosinophil# 0.26 X10^3/uL; Eosinophils% 3.8 % (0-5); Hematocrit 43.2 % (37-47); Hemoglobin 14.1 g/dL (12.0-15.0); Lymphocyte # 1.94 X10^3/ul (0.83-4.51); Lymphocyte % 28.6 % (19-41); Mean Corp Hgb Conc 32.6 g/dL (32-36); Mean Corpuscular Hgb 29.6 pg (27.0-32.0); Mean Corpuscular Volume 90.6 fL (81-99); Mean Platelet Vol. 11.9 fl (6.2-12.0); Monocyte# 0.67 X10^3/uL; Monocyte% 9.9 % (0-10); NRBC Flagged by Analyzer 0 % (0-5); Neutrophil # 3.85 X10^3/uL (2.7-7.7); Neutrophil % 56.8 % (47-70); Platelet Count 249 K/mm3 (150-450); RBC Distribution Width CV 12.5 % (11.6-14.6); RBC Distribution Width SD 41.5 fl (35.1-43.9); Red Blood Count 4.77 M/mm3 (4.2-5.4); White Blood Count 6.8 K/mm3 (4.4-11.0)
[2023-05-17 10:34] LABS: Thyroid Stim Hormone (TSH) 0.92 uIU/mL (0.358-3.74)
[2023-05-23 19:47] LABS: HPV Reflexed? NOT INDICATED
== END | disposition home or self-care (01) ==
PROVIDERS: PCP Internal Medicine; Referring Provider Nurse Practitioner Women's Health; Visit Provider Nurse Practitioner Women's Health
DX: Z12.4 Encounter for screening for malignant neoplasm of cervix (principal); Z13.29 Encounter for screening for other suspected endocrine disorder; N93.9 Abnormal uterine and vaginal bleeding, unspecified
CPT/HCPCS: 36415; 84443; 85025; 88175; G0145